=== PATIENT | male | born 2005 ===

== ENCOUNTER 2024-08-05 08:58 | Day surgery (SDC) | payer OTHER, BC ==
[2024-08-05] MEDS ORDERED: Sodium Chloride 0.9% 10 ML Syringe FLUSH PRN (09:15)
[2024-08-05] MEDS ORDERED: Sodium Chloride 0.9% 2.5 ML Syringe FLUSH PRN (09:15)
[2024-08-05 09:21] LABS: BASOPHILS ABSOLUTE AUTO 0.06 K/uL (0.00-0.20); BASOPHILS PERCENT AUTO 0.6 % (0.0-1.0); EOSINOPHILS ABSOLUTE AUTO 0.01 K/uL (0.00-0.45); EOSINOPHILS PERCENT AUTO 0.1 % (0.0-6.0); HEMATOCRIT 52.9 % (42.0-52.0); HEMOGLOBIN 18.9 g/dL (14.0-18.0); IMMATURE GRAN ABSOLUTE AUTO 0.03 K/uL (0.00-0.05); IMMATURE GRAN PERCENT AUTO 0.3 % (0.0-0.4); LYMPHOCYTES ABSOLUTE AUTO 0.46 K/uL (1.00-4.80); LYMPHOCYTES PERCENT AUTO 4.2 % (24.0-44.0); MEAN CORPUSCULAR HEMOGLOBIN 29.3 pg (28.0-32.0); MEAN CORPUSCULAR HGB CONC 35.7 g/dL (32.0-36.0); MEAN CORPUSCULAR VOLUME 82.1 fL (83.0-99.0); MEAN PLATELET VOLUME 10.6 fL (9.4-12.4); MONOCYTES ABSOLUTE AUTO 1.16 K/uL (0.00-0.80); MONOCYTES PERCENT AUTO 10.7 % (0.0-8.0); NEUTROPHILS ABSOLUTE AUTO 9.15 K/uL (1.80-7.70); NEUTROPHILS PERCENT AUTO 84.1 % (41.0-71.0); PLATELET COUNT,PLT 303 K/uL (150-400); RED BLOOD CELL COUNT 6.44 M/uL (4.52-5.90); WHITE BLOOD CELL COUNT,WBC 10.87 K/uL (3.9-11.3)
[2024-08-05] MEDS: Ondansetron 4 MG/2 ML SDV IVPUSH ONE ×2 (09:34→12:34)
[2024-08-05] MEDS: Sodium Chloride 0.9% 1,000 ML IV STA ×2 (09:35→11:54)
[2024-08-05] MEDS: Pantoprazole 40 MG in Sodium Chloride 0.9% 10 ML IVPUSH ONE (09:41)
[2024-08-05 09:43] LABS: A/G RATIO 1.2 (0.9-1.6); ALBUMIN 4.5 g/dL (3.4-5.0); BILIRUBIN TOTAL 1.1 mg/dL (0.2-1.0); CALCIUM 9.8 mg/dL (8.5-10.1); CREATININE 1.6 mg/dL (0.8-1.3); EST CRCL DRUG DOSING (CG) 68.28 mL/min; POTASSIUM,K 4.2 mmol/L (3.5-5.1); PROTEIN TOTAL,TP 8.2 g/dL (6.4-8.2)
[2024-08-05] MEDS: Iopamidol 755 MG/ML 500 ML Multipack Bottle IVPUSH STA (10:29)
[2024-08-05] MEDS: cefOXitin 2 GM in Sodium Chloride 0.9% 50 ML IV ONE (11:54)
[2024-08-05] MEDS ORDERED: Bupivacaine 0.5% 30 ML SDV ONE (14:30)
[2024-08-05] MEDS ORDERED: ceFAZolin 1 GM Vial ONE (14:30)
[2024-08-05] MEDS: Lactated Ringers 1,000 ML IV SCH (14:32)
[2024-08-05] MEDS: Prochlorperazine 10 MG/2 ML SDV IVPUSH ONE (14:32)
[2024-08-05] MEDS ORDERED: Lidocaine 2% 11 ML Jelly Filled Syringe ONE (15:37)
[2024-08-05] MEDS ORDERED: fentaNYL 100 MCG/2 ML SDV ONE (15:39)
[2024-08-05] MEDS ORDERED: Propofol 200 MG/20 ML SDV ONE (15:39)
[2024-08-05] MEDS ORDERED: Rocuronium Bromide 50 MG/5 ML Syringe ONE (15:40)
[2024-08-05] MEDS ORDERED: fentaNYL 250 MCG/5 ML SDV ONE (15:40)
[2024-08-05] MEDS ORDERED: Ketamine HCL/NACL, ISO-OSM 50 MG/5 ML Syringe ONE (15:40)
[2024-08-05] MEDS ORDERED: Morphine 10 MG/ML SDV ONE (15:42)
[2024-08-05] MEDS ORDERED: Famotidine 20 MG/2 ML SDV ONE (15:43)
[2024-08-05] MEDS ORDERED: Ropivacaine 0.5% 5 MG/ML 30 ML SDV ONE (15:43)
[2024-08-05] MEDS ORDERED: propofoL 500 MG/50 ML 50 ML ONE ×2 (16:25→17:03)
[2024-08-05] MEDS ORDERED: cefOXitin 1 GM Vial ONE (16:42)
[2024-08-05] MEDS ORDERED: Ketorolac 30 MG/ML SDV ONE (17:39)
[2024-08-05] MEDS ORDERED: Sugammadex Sodium 200 MG/2 ML VIAL IV ONE (17:39)
[2024-08-05] MEDS ORDERED: Ondansetron 4 MG/2 ML SDV ONE (17:39)
[2024-08-05] MEDS ORDERED: Dexamethasone 4 MG/ML 5 ML MDV ONE (17:39)
[2024-08-05] MEDS ORDERED: Acetaminophen/HYDROcodone 325-5 MG Tab PO PRN (18:02)
[2024-08-05] MEDS ORDERED: Morphine 2 MG/ML SYRINGE IVPUSH PRN (18:03)
[2024-08-05] MEDS ORDERED: Lactated Ringers 1,000 ML IV SCH (18:15)
== END 2024-08-05 22:10 ==
LOC: MW.ED 08:58 → MW.SDS 12:00 → MW.MS 18:02 → MW.SDS 22:10
PROVIDERS: ATTEND Surgery
DX: K35.30 Acute appendicitis with localized peritonitis, without perforation or gangrene (principal); K38.0 Hyperplasia of appendix; F41.9 Anxiety disorder, unspecified
CPT/HCPCS: 36415; 44970; 74177; 80053; 83690; 85025; 96361; 96365; 96375; 96376; 99285; A9270; J0131; J0665; J0694; J0780; J1100; J1885; J2272; J2405; J2470; J2704; J2795; J3010; J3490; J7030; J7120; Q9967; 00840; 64488; 99283; J0690

== ENCOUNTER 2024-08-06 07:29 | Emergency (ER) | payer BC, OTHER ==
[2024-08-06 08:08] LABS: BASOPHILS ABSOLUTE AUTO 0.02 K/uL (0.00-0.20); BASOPHILS PERCENT AUTO 0.1 % (0.0-1.0); HEMATOCRIT 41.3 % (42.0-52.0); HEMOGLOBIN 14.4 g/dL (14.0-18.0); IMMATURE GRAN ABSOLUTE AUTO 0.06 K/uL (0.00-0.05); IMMATURE GRAN PERCENT AUTO 0.4 % (0.0-0.4); LYMPHOCYTES ABSOLUTE AUTO 1.43 K/uL (1.00-4.80); LYMPHOCYTES PERCENT AUTO 10.5 % (24.0-44.0); MEAN CORPUSCULAR HEMOGLOBIN 29.3 pg (28.0-32.0); MEAN CORPUSCULAR HGB CONC 34.9 g/dL (32.0-36.0); MEAN CORPUSCULAR VOLUME 84.1 fL (83.0-99.0); MEAN PLATELET VOLUME 10.5 fL (9.4-12.4); MONOCYTES ABSOLUTE AUTO 1.38 K/uL (0.00-0.80); MONOCYTES PERCENT AUTO 10.1 % (0.0-8.0); NEUTROPHILS ABSOLUTE AUTO 10.76 K/uL (1.80-7.70); NEUTROPHILS PERCENT AUTO 78.9 % (41.0-71.0); PLATELET COUNT,PLT 245 K/uL (150-400); RED BLOOD CELL COUNT 4.91 M/uL (4.52-5.90); WHITE BLOOD CELL COUNT,WBC 13.65 K/uL (3.9-11.3)
[2024-08-06 08:28] LABS: INR 1.09 (0.86-1.11)
[2024-08-06] MEDS: Sodium Chloride 0.9% 1,000 ML IV STA (08:33)
[2024-08-06] MEDS: Sodium Chloride 0.9% 10 ML Syringe FLUSH PRN (08:33)
[2024-08-06] MEDS: Sodium Chloride 0.9% 2.5 ML Syringe FLUSH PRN (08:34)
[2024-08-06 08:47] LABS: A/G RATIO 1.1 (0.9-1.6); ALBUMIN 3.5 g/dL (3.4-5.0); BILIRUBIN TOTAL 0.4 mg/dL (0.2-1.0); CALCIUM 8.8 mg/dL (8.5-10.1); CARBON DIOXIDE,CO2 24.4 mmol/L (21.0-32.0); CREATININE 0.9 mg/dL (0.8-1.3); EST CRCL DRUG DOSING (CG) 121.39 mL/min; POTASSIUM,K 4.1 mmol/L (3.5-5.1); PROTEIN TOTAL,TP 6.6 g/dL (6.4-8.2)
[2024-08-06] MEDS: Iopamidol 755 MG/ML 500 ML Multipack Bottle IVPUSH STA (10:38)
[2024-08-06 11:28] LABS: BASOPHILS ABSOLUTE AUTO 0.01 K/uL (0.00-0.20); BASOPHILS PERCENT AUTO 0.1 % (0.0-1.0); EOSINOPHILS ABSOLUTE AUTO 0.02 K/uL (0.00-0.45); EOSINOPHILS PERCENT AUTO 0.2 % (0.0-6.0); HEMATOCRIT 38.4 % (42.0-52.0); HEMOGLOBIN 13.4 g/dL (14.0-18.0); IMMATURE GRAN ABSOLUTE AUTO 0.03 K/uL (0.00-0.05); IMMATURE GRAN PERCENT AUTO 0.3 % (0.0-0.4); LYMPHOCYTES ABSOLUTE AUTO 2.02 K/uL (1.00-4.80); LYMPHOCYTES PERCENT AUTO 18.2 % (24.0-44.0); MEAN CORPUSCULAR HEMOGLOBIN 29.7 pg (28.0-32.0); MEAN CORPUSCULAR HGB CONC 34.9 g/dL (32.0-36.0); MEAN CORPUSCULAR VOLUME 85.1 fL (83.0-99.0); MEAN PLATELET VOLUME 10.6 fL (9.4-12.4); MONOCYTES ABSOLUTE AUTO 1.39 K/uL (0.00-0.80); MONOCYTES PERCENT AUTO 12.5 % (0.0-8.0); NEUTROPHILS ABSOLUTE AUTO 7.61 K/uL (1.80-7.70); NEUTROPHILS PERCENT AUTO 68.7 % (41.0-71.0); PLATELET COUNT,PLT 224 K/uL (150-400); RED BLOOD CELL COUNT 4.51 M/uL (4.52-5.90); WHITE BLOOD CELL COUNT,WBC 11.08 K/uL (3.9-11.3)
== END 2024-08-06 12:21 | disposition home or self-care (01) ==
LOC: MW.ED 07:29
DX: R19.7 Diarrhea, unspecified (principal); R10.31 Right lower quadrant pain; Z90.49 Acquired absence of other specified parts of digestive tract; Z88.2 Allergy status to sulfonamides
CPT/HCPCS: 36415; 74177; 80053; 85025; 85610; 87045; 87046; 87324; 87449; 87899; 96360; 99284; J3490; J7030; Q9967